=== PATIENT | male | born 1990 | race Caucasian/White ===

== ENCOUNTER 2016-11-29 01:07 | Emergency (ER) | payer OTHER ==
[~2016-11-29] VITALS: Ht 172.7 cm; Wt 65.6 kg
[~2016-11-29 01:07] MED LIST: LAMI250T PO
[2016-11-29 01:14] VITALS: BP 155/99; PULSE 61; RESP 18; TEMP 98; O2SAT 100
--- NOTE | 2016-11-29 01:30 | PD ---
HPI Chief Complaint: Injury Time Seen by Provider: 01:13 Travel History International Travel<30 days: No Contact w/Intl Traveler<30days: No Traveled to known affect area: No History of Present Illness HPI 18-year-old male complains of right hand pain. Patient states that he was struck by a heavy door on the right hand 5 days ago. Patient was seen at local walk-in clinic the next day. X-ray was done on the right hand which shows fracture right fifth metacarpal. Patient was advised to go to the emergency room for splint. Patient unable to go to the emergency room until today because of financial reason and insurance reason. Patient states that he has sharp pain localized in the right hand. Patient denies any pain radiation. Patient put a splint on the right hand by himself. PFSH Social History Tobacco Use: No Allergies-Medications (Allergen,Severity, Reaction): Coded Allergies: No Known Allergies (Unverified , 08/06/13) Reported Meds & Prescriptions Reported Meds & Active Scripts Active Ultram (Tramadol HCl) 50 Mg Tab 50 Mg PO Q6H PRN Lamisil (Terbinafine HCl) 250 Mg Tab 250 Mg PO DAILY take daily by mouth for 12 weeks Review of Systems General / Constitutional: No: Fever Eyes: No: Visual changes HENT: No: Headaches Cardiovascular: No: Chest Pain or Discomfort Respiratory: No: Shortness of Breath Gastrointestinal: No: Abdominal Pain Genitourinary: No: Dysuria Musculoskeletal: Positive: Pain Skin: No Rash Neurologic: No: Weakness Psychiatric: No: Depression Endocrine: No: Polydipsia Hematologic/Lymphatic: No: Easy Bruising Physical Exam Narrative GENERAL: Well-nourished, well-developed patient. SKIN: Focused skin assessment warm/dry. HEAD: Normocephalic. EYES: No scleral icterus. No injection or drainage. NECK: Supple, trachea midline. No JVD or lymphadenopathy. CARDIOVASCULAR: Regular rate and rhythm without murmurs, gallops, or rubs. RESPIRATORY: Breath sounds equal bilaterally. No accessory muscle use. GASTROINTESTINAL: Abdomen soft, non-tender, nondistended. MUSCULOSKELETAL: No cyanosis, or edema. BACK: Nontender without obvious deformity. No CVA tenderness. Patient has soft tissue swelling tenderness over the fifth metacarpal on the right hand. Full range of motion of the fingers. Limited range of motion of the right fifth finger. Sensory function intact. Data Data Last Documented VS Vital Signs Date Time Temp Pulse Resp B/P Pulse Ox O2 Delivery O2 Flow Rate FiO2 11/29/16 02:20 87 16 127/77 100 11/29/16 01:24 Room Air 11/29/16 01:14 98.0 Orders Hand, Complete (Clx0nxw) (11/29/16 01:22) Splint Or Brace Apply/Monitor (11/29/16 01:42) Fiberglass Splint Forearm Adul (11/29/16 ) MDM Medical Decision Making Medical Screen Exam Complete: Yes Emergency Medical Condition: Yes Interpretation(s) X-ray right hand shows fracture distal right fifth metacarpal with angulation. Differential Diagnosis Differential diagnosis including contusion, fracture, dislocation. Narrative Course 26-year-old male with right hand injury. Ulnar gutter splint Diagnosis Primary Impression: Fracture of fifth metacarpal bone of right hand Qualified Code: S62.356A - Closed nondisplaced fracture of shaft of fifth metacarpal bone of right hand, initial encounter Patient Instructions: General Instructions Additional Instructions: Take medication as directed for pain. Keep hand elevated. Follow-up with hand surgeon. Med/Other Pt SpecificInfo: Prescription(s) given Scripts Tramadol (Ultram)50 Mg Tab50 Mg PO Q6H PRN (PAIN) #30 TAB Ref 0 Prov:Chava Clarke MD 11/29/16 Disposition: DISCHARGE HOME Condition: Stable Chava Clarke MD Nov 29, 2016 01:30
--- NOTE | 2016-11-29 01:40 | RADRPT ---
EXAM DATE/TIME: 11/29/2016 01:25 [facility] COMPARISON: No previous studies available for comparison. INDICATIONS : Right hand pain. MEDICAL HISTORY : None. SURGICAL HISTORY : None. ENCOUNTER: Initial ACUITY: 1 week PAIN SCORE: 6/10 LOCATION: Right hand. FINDINGS: Three view examination of the right hand demonstrates no soft tissue swelling, or dislocation. There is an oblique fracture of the fifth metacarpal neck The carpal bones appear intact. The interphala ngeal and metacarpophalangeal joints are intact. Bony mineralization is normal. CONCLUSION: Oblique fracture of the fifth metacarpal neck. Paul Sorensen MD on November 29, 2016 at 1:37 Board Certified Radiologist. This report was verified electronically.
[2016-11-29] MEDS ORDERED: ULTR50TA5 PO (01:45)
[2016-11-29 02:20] VITALS: BP 127/77
== END 2016-11-29 02:20 | disposition home or self-care (01) ==
LOC: PHED 01:07
DX: S62.356A Nondisplaced fracture of shaft of fifth metacarpal bone, right hand, initial encounter for closed fracture (principal); W22.8XXA Striking against or struck by other objects, initial encounter
CPT/HCPCS: 73130; 99283